=== PATIENT | male | born 1985 | race Caucasian/White ===

== ENCOUNTER 2019-09-26 06:49 | Emergency (ER) | payer OTHER ==
[~2019-09-26] VITALS: Ht 188 cm; Wt 63.5 kg
[2019-09-26] MEDS ORDERED: CLEOCIN HCL300 MG PO (07:40)
[2019-09-26] MEDS ORDERED: NORCO 5-325 TA1 EAC1 PO (07:57)
[2019-09-26 07:58] VITALS: BP 128/86
== END 2019-09-26 07:58 | disposition home or self-care (01) ==
LOC: M.ERS 06:49
DX: K02.9 Dental caries, unspecified (principal); F17.200 Nicotine dependence, unspecified, uncomplicated; Z90.49 Acquired absence of other specified parts of digestive tract; Z87.442 Personal history of urinary calculi